=== PATIENT | male | born 1990 | race Caucasian/White ===

== ENCOUNTER 2017-09-27 13:21 | Emergency (ER) | payer SELFPAY ==
--- NOTE | 2017-09-27 14:28 | EDM.PDOC ---
ED HPI GENERAL MEDICAL PROBLEM - General Chief Complaint: Abdominal Pain Stated Complaint: CONSTIPATION Time Seen by Provider: 09/27/17 14:00 Source of Information: Reports: Patient History Limitations: Reports: No Limitations - History of Present Illness INITIAL COMMENTS - FREE TEXT/NARRATIVE: 26-year-old male presents for evaluation treatment constipation. Patient reports she has not had a bowel movement last 10 days. He did try some suppositories yesterday. He also tried some magnesium citrate and Dulcolax last night without any results. He states he's had several bowel movements but they have only been liquid. Nothing solid. He reports some pressure to his lower abdomen and rectal area. No abdominal pain. No nausea, vomiting, fevers or chills. He states he is otherwise healthy with no known medical conditions. No past medical history constipation. He reports early satiety but states he does have a good appetite. Rectal Pain Score (Numeric/FACES): 5 - Related Data Allergies Allergy/AdvReac Type Severity Reaction Status Date / Time amoxicillin Allergy Hives Verified 09/27/17 13:40 Penicillins Allergy Hives Verified 09/27/17 13:40 Home Meds: Home Meds . [No Known Home Meds] 09/27/17 [History] Past Medical History - Past Health History Medical/Surgical History: Denies Medical/Surgical History Social & Family History - Tobacco Use Smoking Status *Q: Current Every Day Smoker Years of Tobacco use: 8 Packs/Tins Daily: 0.2 - Caffeine Use Caffeine Use: Reports: Coffee, Soda - Recreational Drug Use Recreational Drug Use: No ED ROS GENERAL - Review of Systems Review Of Systems: See Below Constitutional: Reports: Other (early satity). Denies: Fever, Chills, Decreased Appetite GI/Abdominal: Reports: Constipation, Other (reprots lower abdominal pressure and rectal pressure). Denies: Abdominal Pain, Nausea, Vomiting ED EXAM, GI/ABD - Physical Exam Exam: See Below Exam Limited By: No Limitations General Appearance: Alert, WD/WN, No Apparent Distress Eyes: Bilateral: Normal Appearance Throat/Mouth: Normal Inspection, Normal Voice, No Airway Compromise Respiratory/Chest: No Respiratory Distress, Lungs Clear, Normal Breath Sounds Cardiovascular: Normal Peripheral Pulses, Regular Rate, Rhythm, No Murmur GI/Abdominal Exam: Normal Bowel Sounds, Soft, Non-Tender Rectal (Males) Exam: Normal Exam, Normal Rectal Tone, Other (no stool appreciated on rectal exam) Neurological: Alert, Oriented, Normal Cognition Psychiatric: Normal Affect, Normal Mood Skin Exam: Warm, Dry, Normal Color Course - Vital Signs Last Recorded V/S: Last Vital Signs Temp 36.4 C 09/27/17 13:35 Pulse 56 L 09/27/17 13:35 Resp 20 09/27/17 13:35 BP 120/86 09/27/17 13:35 Pulse Ox 98 09/27/17 13:35 - Radiology Interpretation Free Text/Narrative:: xray of the flat and upright impression per dr. colin: unremarkable two view abdominal xray - Re-Assessments/Exams Free Text/Narrative Re-Assessment/Exam: 09/27/17 16:49 Reviewed xray results with the patient. Rectal exam is unremarkable. Will discharge home. Continue to work with OTC medications . Discharge instructions as documented . Departure - Departure Time of Disposition: 16:55 Disposition: Home, Self-Care 01 Condition: Good Clinical Impression: Constipated - Discharge Information Instructions: Constipation, Adult Referrals: PCP,None [Primary Care Provider] - Forms: ED Department Discharge Additional Instructions: Recommend using [id number] MiraLAX daily. I also recommend that you use a Fleet enema. These are available over-the- counter. You do not have a large bowel movement from the MiraLAX and the enema, drink another bottle magnesium citrate. make sure you are drinking plenty of fluids. Continue to use activity or an [id number] probiotic. Follow-up with family medicine if your symptoms do not improve by early next week. Recommend Bronson Liu or Dr. Hardin at the [facility]. Please call [phone] to schedule with either of these providers. Please return to the ER if your symptoms change or worsen.
--- NOTE | 2017-09-27 15:16 | CR ---
Abdomen: Supine and upright views of the abdomen were obtained. Comparison: No previous study. No free air is identified. Bowel gas pattern is normal. Calcification is seen overlying the left sacrum most likely representing bone island. Bony structures are otherwise unremarkable. No abnormal calcifications or soft tissue abnormality is identified. Impression: 1. Unremarkable two-view abdominal x-ray. Diagnostic code #2
== END 2017-09-27 17:40 | disposition home or self-care (01) ==
LOC: JD.ED 13:21
DX: K59.00 Constipation, unspecified (principal); F17.210 Nicotine dependence, cigarettes, uncomplicated; Z88.0 Allergy status to penicillin; Z88.1 Allergy status to other antibiotic agents
CPT/HCPCS: 74020; 74020-26; 99283; 99284